=== PATIENT | female | born 1990 | race Caucasian/White ===

== ENCOUNTER 2016-12-07 17:03 | Emergency (ER) | payer OTHER ==
[2016-12-07 17:41] VITALS: BP 143/101
--- NOTE | 2016-12-07 18:03 | UC ---
Complaint Female HPI - HPI Summary HPI Summary: dysuria, inc frequency, burning with urination. No fever or vomiting. Feels like prior UTIs. - History Of Current Complaint Chief Complaint: [facility] Stated Complaint: URINARY Time Seen by Provider: 12/07/16 17:29 Hx Obtained From: Patient Hx Last Menstrual Period: 11/21/16 Onset/Duration: Gradual Onset, Lasting Days - 2 Timing: Constant Severity Initially: Mild Severity Currently: Moderate Character: Dull, Cramping Aggravating Factor(s): Urination Associated Signs And Symptoms: Negative: Fever, Back Pain, Vaginal Bleeding/ Discharge, Nausea, Vomiting(# Of Episodes =), Genital Swelling, Genital Blisters - Risk Factors Ectopic Risk Factor: Negative Ovarian Torsion Risk Factor: Negative - Allergies/Home Medications Allergies/Adverse Reactions: Allergies Allergy/AdvReac Type Severity Reaction Status Date / Time Latex Allergy Rash Verified 12/07/16 17:31 gluten intolerance Allergy See Comment Uncoded 12/07/16 17:31 PMH/Surg Hx/FS Hx/Imm Hx Previously Healthy: Yes Endocrine History Of: Denies: Diabetes, Thyroid Disease Cardiovascular History Of: Denies: Cardiac Disorders, Hypertension Respiratory History Of: Denies: COPD, Asthma GI/ History Of: Denies: Ulcer - Surgical History Surgical History: Yes Surgery Procedure, Year, and Place: SKIN GRAFT left leg age 11 - Family History Known Family History: Positive: Hypertension - Social History Occupation: Employed Full-time Lives: With Family Alcohol Use: Occasionally Substance Use Type: None Smoking Status (MU): Never Smoked Tobacco - Immunization History Most Recent Influenza Vaccination: None Review of Systems Constitutional: Negative Skin: Negative Eyes: Negative ENT: Negative Respiratory: Negative Cardiovascular: Negative Gastrointestinal: Negative Genitourinary: Dysuria, Frequency, Urgency Motor: Negative Neurovascular: Negative Musculoskeletal: Negative Neurological: Negative Psychological: Negative All Other Systems Reviewed And Are Negative: Yes Physical Exam Triage Information Reviewed: Yes Appearance: Well-Appearing, No Pain Distress, Well-Nourished Vital Signs: Initial Vital Signs Temp 97.9 F 12/07/16 17:32 Pulse 75 12/07/16 17:32 Resp 18 12/07/16 17:32 BP 143/101 12/07/16 17:32 Pulse Ox 100 12/07/16 17:32 Vital Signs Reviewed: Yes Eye Exam: Normal Neck exam: Normal Respiratory Exam: Normal Cardiovascular Exam: Normal Abdominal Exam: Other - suprapubic tenderness Musculoskeletal Exam: Normal Neurological Exam: Normal Psychological Exam: Normal Skin Exam: Normal Diagnostics - Laboratory Diagnostic Studies Completed/Ordered: U/A dip pos leuks Complaint Female Dx - Differential Dx/Diagnosis Provider Diagnoses: UTI Discharge - Discharge Plan Condition: Stable Disposition: HOME Prescriptions: Cephalexin CAP* [Keflex CAP*] 500 mg PO TID #21 cap Fluconazole [Diflucan 150 MG (NF)] 150 mg PO ONCE PRN #1 tab PRN Reason: vaginal itching Phenazopyridine HCl [Pyridium] 200 mg PO TID PRN #6 tab PRN Reason: pain with urination Patient Education Materials: Urinary Tract Infection in Women (ED) Referrals: No Primary Care Phys,NOPCP [Primary Care Provider] -
== END 2016-12-07 18:06 | disposition home or self-care (01) ==
LOC: UCCORT 17:03
DX: N39.0 Urinary tract infection, site not specified (principal); Z87.440 Personal history of urinary (tract) infections
CPT/HCPCS: 87077; 87086; 87186; 99212; G0463